=== PATIENT | female | born 1985 | race Asian ===

== ENCOUNTER 2019-01-13 05:55 | Inpatient (IN) | payer OTHER ==
[2019-01-11 16:58] LABS: ABS Basophils 0 10^3/ul (0-0.2); ABS Eosinophils 0 10^3/ul (0-0.6); ABS Lymphocytes 1.5 10^3/ul (1.0-4.8); ABS Monocytes 0.9 10^3/ul (0-0.8); ABS Neutrophils 6.3 10^3/ul (1.5-7.7); ABS Nucleated RBC 0 10^3/ul; Eosinophil % 0.5 %; Hematocrit 33 % (35-47); Hemoglobin 10.7 g/dl (12.0-16.0); Lymphocyte % 17.1 %; Mean Corpuscular HGB Conc 33 g/dl (31-36); Mean Corpuscular Hemoglobin 29 pg (27-31); Mean Corpuscular Volume 88 fL (80-97); Mean Platelet Volume 8.5 fL (7.4-10.4); Nucleated Red Blood Cells % 0; Platelet Count 201 10^3/ul (150-450); Red Blood Count 3.69 10^6/ul (4.00-5.40); Red Cell Distribution Width 15 % (10.5-15); White Blood Count 8.7 10^3/ul (3.5-10.8)
[~2019-01-13 05:55] MED LIST: Buffered Lidocaine 1% SYRIN* 1 ML/SYRINGE INTRADERM ONE
--- OUTSIDE RECORDS SUMMARY | 2019-01-13 05:59 | XMS REPORT | Continuity of Care Document ---
:1985 External Reference #:[id number] Author Name Emmett Bruno MD Address [address] [place] [address] Care Team Providers Name Role Phone Samuel Benitez M.D. 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 Payers Date Identification Numbers Payment Provider Subscriber Policy Number: [id number] Aetnicole Salcido PayID: [id number] [address] [place] [address] Advance Directives Description No Information Available Problems Description No Information Family History Date Family Member(s) Observation Comments Father A&W Mother Hypertension First Daughter A&W First Brother A&W Paternal Grandfather due to Unknown Causes () Paternal Grandmother due to Unknown Causes () Maternal Grandfather due to Unknown Causes () Maternal Grandmother due to Unknown Causes () Social History Type Date Description Comments Sex Unknown Education Highest level completed, Bachelor's Degree Marital Status Lives With Lives With Daughter Pets None 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 Tobacco Use Start: Unknown Never Smoked Cigarettes ETOH Use Denies alcohol use Recreational Drug Use Denies Drug Use Tobacco Use Start: Unknown Patient has never smoked Smoking Status Reviewed: 01/04/19 Patient has never smoked STD's No STD History Allergies, Adverse Reactions, Alerts Date Description Reaction Status Severity Comments 07/05/2018 Sulfa Active Medications Medication Date Status Form Strength Qnty SIG Indications Ordering Provider PNV-Dha Active Capsules 27-0.6-0.4-3 1 by Unknown 00 00mg mouth every day Magnesium Hx Capsules 500mg 1 by Unknown 00 - mouth 01/04/20 daily prn 19 Medications Administered in Office Medication Date Status Form Strength Qnty SIG Indications Ordering Provider PT SCRN Tbco Administered Injection Phaelon Id as Non User 019 MD Kiana Immunizations CPT Code Status Date Vaccine Lot # [id number] Given 11/16/2018 Tetnus, Diptheria Toxoids And Acellular Pertussis, [id number] PT > 7Yrs Old Vital Signs Date Vital Result Comment 01/04/2019 10:01am BP Systolic 108 mmHg BP Diastolic 78 mmHg Body Temperature 96.9 F Heart Rate 100 /min Respiratory Rate 16 /min Height 61.75 inches 5'1.75" Weight 198.00 lb BMI (Body Mass Index) 36.5 kg/m2 Last Menstrual Period 5246005 2 Parity 1 07/05/2018 9:33am BP Systolic 112 mmHg BP Diastolic 76 mmHg Height 61.75 inches 5'1.75" Weight 171.00 lb BMI (Body Mass Index) 31.5 kg/m2 Last Menstrual Period [id number] 2 Parity 1 Results Test Date Facility Test Result H/L Range Note Laboratory test 12/15/2018 [facility] Genital For GRP SEE RESULT 1 [place] [address] B Strep Only BELOW [phone] Glucose Tolerance 10/24/2018 [facility] GTT 3HR (SEE NOTE) 2 3[place] [address] Gestational [phone] Laboratory test 10/18/2018 [facility] Glucose 1 HR 136 mg/dL N 70-160 3 [place] [address] Post Prandial [phone] CBC With No Diff 10/18/2018 [facility] White Blood 10.2 N 3.5- 10.8 [place] [address] Count 10^3/uL [phone] Red Blood Count 3.50 10^6/uL Low 4.00-5.40 Hemoglobin 10.8 g/dL Low 12.0-16.0 Hematocrit 33 % Low 35-47 Mean Corpuscular Volume 95 fL N 80-97 Mean Corpuscular Hemoglobin 31 pg N 27-31 Mean Corpuscular HGB Conc 33 g/dL N 31-36 Red Cell Distribution Width 14 % N 10.5-15 Platelet Count 233 10^3/uL N 150-450 Mean Platelet Volume 8.5 fL N 7.4-10.4 Urine Drug 08/05/2018 [facility] Urine Amphetamine Negative ng/ mL 4 Comp [address] [place] [address] [phone] Urine Barbiturates Negative ng/mL 5 Urine Benzodiazepines Negative ng/mL 6 Urine Cocaine Negative ng/mL 7 Urine Phencyclidine Negative ng/mL Cutoff: 25 Urine Tetrahydrocannabinol Negative ng/mL Cutoff: 50 8 Creatinine, Urine 90.5 mg/dL Specific [place] 1.012 pH 7.4 Oxidants Negative 9 Adulterants Comment Normal Codeine, Ur Not Detected ng/mL Cutoff: 25 10 Qzymjyn-5-iyyo-glucuronide, Ur Not Detected ng/mL 11 Morphine, Ur Not Detected ng/mL Cutoff: 25 12 Jltutrex-4-scsw-glucuronide, U Not Detected ng/mL 13 6-monoacetylmorphine, Ur Not Detected ng/mL Cutoff: 25 14 Hydrocodone, Ur Not Detected ng/mL Cutoff: 25 15 Norhydrocodone, Ur Not Detected ng/mL Cutoff: 25 16 Dihydrocodeine, Ur Not Detected ng/mL Cutoff: 25 17 Hydromorphone, Ur Not Detected ng/mL Cutoff: 25 18 Hxjrishvvluqi5vshgskkbigogzln Not Detected ng/mL 19 Oxycodone, Ur Not Detected ng/mL Cutoff: 25 20 Noroxycodone, Ur Not Detected ng/mL Cutoff: 25 21 Oxymorphone, Ur Not Detected ng/mL Cutoff: 25 22 Dfiobqugucd-6-seiv-glucuronide Not Detected ng/mL 23 Noroxymorphone, Ur Not Detected ng/mL Cutoff: 25 24 Fentanyl, Ur Not Detected ng/mL Cutoff: 2 25 Norfentanyl, Ur Not Detected ng/mL Cutoff: 2 26 Meperidine, Ur Not Detected ng/mL Cutoff: 25 27 Normeperidine, Ur Not Detected ng/mL Cutoff: 25 28 Naloxone, Ur Not Detected ng/mL Cutoff: 25 29 Ikgaahyn-3-ywct-glucuronide, U Not Detected ng/mL 30 Methadone, Ur Not Detected ng/mL Cutoff: 25 31 Eddp, Ur Not Detected ng/mL Cutoff: 25 32 Propoxyphene, Ur Not Detected ng/mL Cutoff: 25 33 Norpropoxyphene, Ur Not Detected ng/mL Cutoff: 25 34 Tramadol, Ur Not Detected ng/mL Cutoff: 25 35 O-desmethyltramadol, Ur Not Detected ng/mL Cutoff: 25 36 Tapentadol, Ur Not Detected ng/mL Cutoff: 25 37 N-desmethyltapentadol, Ur Not Detected ng/mL Cutoff: 50 38 Xagjwvsjwu-umjf-csivgfbjnsv, U Not Detected ng/mL 39 Buprenorphine, Ur Not Detected ng/mL Cutoff: 5 40 Norbuprenorphine, Ur Not Detected ng/mL Cutoff: 5 41 Norbuprenorphine glucuronide Not Detected ng/mL Cutoff: 20 42 Opioid Interpretation See Comment 43 Maternal Serum Afp 08/05/2018 [facility] Interpretation SEE NOTE 44 Risk For NTD (Osb) LESS THAN 1:5000 45 Afp,Serum 24.7 NG/ML Adjusted Mom 0.81 46 Comment SEE NOTE 47 Date Of 1985 VALENTIN 01/18/2019 VALENTIN Determined By ULTRASOUND Gestational Age 16.3 WEEKS Weight 171 LBS Race =A Insulin Dependent Diabetic NO Cigarette Smoker NO Repeat Sample NO Number Of Fetuses 1 History Of NTD NO Date Of Draw 08/05/2018 Continuous 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 SEE NOTE 48 Urine Culture And 07/05/2018 [facility] Urine Culture SEE RESULT 49 [place] [address] BELOW [phone] GC/Chlamydia Dna 07/05/2018 [facility] Chlamydia [place] [address] trachomatis [phone] Rna Neisseria gonorrhoeae (GC) Rna Negative Negative Laboratory test 07/05/2018 [facility] Cytology SEE RESULT [address] [place] [address] BELOW [phone] Spinal Muscular 07/05/2018 [facility] Result Summary See Comment 51 [place] [address] SCRN D/D [phone] Result See Comment 52 Interpretation See Comment 53 Additional Information See Comment 54 Specimen See Comment 55 Released By See Comment 56 Varicella 07/05/2018 [facility] Varicella-Zoster IgG Negative 57 [place] [address] Antibody [phone] Varicella IgG Antibody Index <0.2 58 Hemoglobin 07/05/2018 [facility] Hemoglobin A2 2.8 % 2.0-3.3 [place] [address] [phone] Hemoglobin F 0.0 % 0.0-0.9 59 Hemoglobin A 97.2 % 95.8-98.0 Variant Hemoglobin 0.0 % 60 Hemoglobin Electro Interp See Comment 61 Cystic Fibrosis 07/05/2018 [facility] Cystic Fibrosis See Comment 62 [place] [address] Specimen [phone] Cystic Fibrosis Method See Comment 63 Cystic Fibrosis Result Summary NEGATIVE Cystic Fibrosis Result See Comment 64 Cystic Fibrosis Interpretation See Comment 65 Cystic Fibrosis Released By See Comment 66 Lead 07/05/2018 [facility] Lead,Venous, B < 1.0 g/dL 0.0- 4.9 67 [place] [address] [phone] Venous/Capillary Venous Submitting Laboratory Phone [phone] HIV 1/2 AB 07/05/2018 [facility] HIV 1 2 Nonreactive Nonreactive 69 [place] [address] Antibody [phone] Type And 07/05/2018 [facility] Patient [place] [address] Blood Type [phone] Antibody Screen NEGATIVE CBC With No 07/05/2018 [facility] White Blood 11.8 10^3/uL High 3.5-10.8 [place] [address] Count [phone] Red Blood Count 4.08 10^6/uL N 4.00-5.40 Hemoglobin 12.2 g/dL N 12.0-16.0 Hematocrit 37 % N 35-47 Mean Corpuscular Volume 90 fL N 80-97 Mean Corpuscular Hemoglobin 30 pg N 27-31 Mean Corpuscular HGB Conc 33 g/dL N 31-36 Red Cell Distribution Width 14 % N 10.5-15 Platelet Count 259 10^3/uL N 150-450 Mean Platelet Volume 8.8 um3 N 7.4-10.4 PNL No 07/05/2018 [facility] Rubella Screen Immune Immune 70 [place] [address] [phone] Hemoglobin A1c 5.3 % N 4.0-5.6 71 Hepatitis B Surface Ag Nonreactive Nonreactive 72 Syphillis Igg W/Reflex RPR Nonreactive Nonreactive 73 1 SEE RESULT BELOW Name: DAWIT SALCIDO : [address]: Emmett Bruno MD Acct: [id number] Unit: [id number] AGE: 33 Location: [facility] Re12/15/18 SEX: F Status: REG REF SPEC: [id number] CHARLES: 12/15/18-1405 [facility] DR: Emmett Bruno MD REQ: [id number] RECD: 12/15/18 STATUS: COMP _ SOURCE: CER/VAG/RE SPDESC: ORDERED: Grp B Strp Scrn COMMENTS: [id number] QUERIES: Is Patient Penicillin Allergic? N Is patient penicillin allergic and/or sensitivities needed? N Provider Requisition # [id number] Procedure Result Reported Site Group B Strep Culture Screen Final 12/17/18- 1323 ML Group B Strep Screen Negative * ML - Main Lab . END OF REPORT DEPARTMENT OF PATHOLOGY, [address] [place] [address] Seven Gipson M.D. Director [facility] # [id number] 2 GLU Fast 74 Col: 10/24/18 0951 GLU 1HR 166 Col: 10/24/18 1051 GLU 2HR 146 Col: 10/24/18 1151 GLU 3HR 113 Col: 10/24/18 1151 GLU Interp Col: 10/24/18 0951 GTT normal ranges for obstetrics per the [employer] (ACOG).Based on 100 gm glucose load: Fasting <95 mg/dl 1hr <180 mg/dl 2hr <155 mg/dl 3hr <140 mg/dl 3 [id number] CBC 4 REFERENCE VALUE Cutoff: 500 5 REFERENCE VALUE Cutoff: 200 6 REFERENCE VALUE Cutoff: 100 7 REFERENCE VALUE Cutoff: 150 8 ADDITIONAL INFORMATION This report is intended for use in clinical monitoring or management of patients. It is not intended for use in employment-related testing. 9 REFERENCE VALUE Cutoff: 200 mg/L 10 Tylenol 3 11 Metabolite of codeine REFERENCE VALUE Cutoff: 100 12 Elizabeth Zapata, Contin; Also a minor metabolite (10%) of codeine and can be seen in low concentrations (<2,000 ng/mL) with poppy seed ingestion. 13 Metabolite of morphine REFERENCE VALUE Cutoff: 100 14 Metabolite of heroin 15 Lortab, [place], Vicodin; Also a very minor metabolite of codeine and impurity (<1%) of oxycodone. 16 Metabolite of hydrocodone 17 Metabolite of hydrocodone 18 Dilaudid, Exalgo; Also a metabolite of hydrocodone and a minor (<5%) metabolite of morphine. 19 Metabolite of hydromorphone REFERENCE VALUE Cutoff: 100 20 Endocet, Percocet, Oxycontin 21 Metabolite of oxycodone 22 Numorphan, Opana; Also a metabolite of oxycodone. 23 Metabolite of oxymorphone REFERENCE VALUE Cutoff: 100 24 Metabolite of oxymorphone 25 Actiq, Duragesic, Fentora 26 Metabolite of fentanyl 27 Demerol 28 Metabolite of meperidine 29 Narcan 30 Metabolite of naloxone REFERENCE VALUE Cutoff: 100 31 Dolophine 32 Metabolite of methadone 33 Darvon, Darvocet 34 Metabolite of propoxyphene 35 Tradol, Ultram, Ultracet 36 Metabolite of tramadol 37 Nucynta 38 Metabolite of tapentadol 39 Metabolite of tapentadol REFERENCE VALUE Cutoff: 100 40 Buprenex, Suboxone 41 Metabolite of buprenorphine 42 Metabolite of buprenorphine 43 No opioids were detected. The absence of expected drug(s) and/or drug metabolite(s) may indicate non-compliance, altered pharmacokinetics, inappropriate timing of specimen collection relative to drug administration, diluted/adulterated urine, or limitations of testing. ADDITIONAL INFORMATION This test was developed and its performance characteristics determined by [facility] in a manner consistent with CLIA requirements. This test has not been cleared or approved by the U.S. Food and Drug Administration. Test Performed by: [facility] [address] [place] [address] 44 SCREEN NEGATIVE FOR OPEN NTD. 45 LESS THAN 1:5000 46 ADJUSTED AFP MOM INTERPRETIVE CUTOFFS: <2.50 ADJUSTED MOM <1.90 ADJUSTED MOM FOR INSULIN-DEPENDENT DIABETES <4.00 ADJUSTED MOM FOR TWINS <3.50 ADJUSTED MOM FOR TWINS INSULIN-DEPENDENT DIABETES <4.50 ADJUSTED MOM FOR TRIPLETS <4.00 ADJUSTED MOM FOR TRIPLETS INSULIN-DEPENDENT DIABETES 47 THE AFP TEST RESULT INDICATES THAT THIS PATIENT IS SCREEN NEGATIVE FOR OPEN NTD. IT SHOULD BE NOTED THAT NORMAL TEST RESULTS CAN NEVER GUARANTEE THE OF A NORMAL BABY AND THAT 2-3% OF [place] HAVE SOME TYPE OF PHYSICAL OR MENTAL DEFECT, MANY OF WHICH ARE UNDETECTABLE THROUGH ANY KNOWN DIAGNOSTIC TECHNIQUE. THE SINGLE AFP MARKER IS NOT RECOMMENDED FOR DOWN SYNDROME AND OTHER CHROMOSOMAL ABNORMALITIES SCREENING. MUCH GREATER SENSITIVITY IS ACHIEVED WITH MULTIPLE MARKERS, SUCH AFP, HCG, UNCONJUGATED ESTRIOL, AND/OR DIMERIC INHIBIN A. WHILE WOMEN 35 YEARS OR OLDER AT THE TIME OF DELIVERY HAVE THE HIGHEST RISK OF HAVING A CHILD WITH DOWN SYNDROME, CURRENT [place] [employer] OF OBSTETRICS AND GYNECOLOGY GUIDELINES (PHLEBOTOMIST SUPERVISOR/INSTRUCTOR 2007 V109 [id number] RECOMMEND THAT "MATERNAL AGE ALONE NO LONGER BE USED A CUT-OFF TO DETERMINE WHO IS OFFERED SCREENING VERSUS WHO IS OFFERED INVASIVE TESTING." GENETIC COUNCELING MAY BE CONSIDERED. THIS IS A SCREENING TEST, NOT A DIAGNOSTIC TEST. THIS RISK ASSESSMENT REPORT IS BASED IN PART ON DEMOGRAPHIC DATA PROVIDED BY THE ORDERING PHYSICIAN. PLEASE NOTIFY THE LAB PROMPTLY IF ANY DATA IS INCORRECT. FOR ASSISTANCE WITH RECALCULATIONS, PLEASE CALL YOUR LOCAL [facility] AT . FOR ASSISTANCE WITH INTERPRETATION OF THESE RESULTS, PLEASE CALL [phone]. 48 --- Reviewed by: Armani Ac MD 49 SEE RESULT BELOW Name: DAWIT SALCIDO : [address]: Julieta Rodríguez CNM Acct: [id number] Unit: [id number] AGE: 32 Location: [facility] Re07/05/18 SEX: F Status: REG REF SPEC: [id number] CHARLES: 07/05/18-[address]: Julieta Rodríguez CNM REQ: [id number] RECD: 07/05/18 STATUS: COMP _ SOURCE: URINE [facility]: ORDERED: Urine Culture COMMENTS: [id number] Urine Source: Random Procedure Result Reported Site Urine Culture Final 07/06/18- 1215 ML No Growth (<1,000 CFU/mL) * ML - Main Lab . END OF REPORT DEPARTMENT OF PATHOLOGY, [address] [place] [address] Seven Gipson M.D. Director [facility] # [id number] 50 SEE RESULT BELOW Name: DAWIT SALCIDO : [address]: Julieta JEAN Acct: [id number] Unit: [id number] AGE: 32 Location: [facility] Re07/05/18 SEX: F Status: REG REF SPEC: [id number] CHARLES: 07/05/18-[address]: Julieta Rodríguez [facility] REQ: [id number] RECD: 07/05/18 STATUS: SOUT _ ORDERED: TP IMAGE ANALYS, HPV/Thin Prep COMMENTS: [id number] Negative for Intraepithelial lesion or Malignancy Date Time Test Result Flag (u) Normal Range 07/05/18 1054 @ HPV RNA Negative Negative @ @ The high-risk HPV types detected by the assay include: 16, @ 18, 31, 33, 35, 39, 45, 51, 52, 56, 58, 59, 66, and 68. A. Ectocervical/Endocervical Specimen Adequacy: Satisfactory of evaluation Transformation zone component identified Patient Information: HPV: High risk HPV RNA testing regardless of pap results. Actual Specimen Date: 07/05/18 Last Menstrual Date: 04/07/18 Spec Date if unknown: unknown ?: Y Post Menopausal?: N Hysterectomy?: N Previous Abnormal Pap Smears?:N Signed by and Reported on: Lenin MendozaRYAN sherwood (ASCP) 1303 This Pap test was evaluated with the assistance of the MediWoundPrep Test Imaging System. Due to cytologic findings at the wire turning machine operator microscope, comprehensive manual rescreening by a Business Owner/Engineer may be required. The Pap Smear is a screening test designed to aid in the detection of premalignant and malignant conditions of the uterine cervix. It is not a diagnostic procedure and should not be used as the sole means of detecting cervical cancer. Both false- positive and false- negative reports do occur. Depending on your risk status, a Pap smear should be obtained and evaluated every 1-3 years. END OF REPORT DEPARTMENT OF PATHOLOGY, [address] [place] [address] Seven Gipson M.D. Director [facility] # [id number] 51 RESULT: NEGATIVE FOR SMN1 DELETION (SEE INTERPRETATION) 52 Two copies of SMN1 exon 7 were detected. Three copies of SMN2 were detected. 53 This result indicates a reduced carrier risk for Spinal Muscular Atrophy (SMA). Although SMN1 gene deletions account for 95% of SMA-causing mutations, carrier status cannot be completely excluded because this test cannot differentiate one copy of SMN1 exon 7 on each chromosome (1/1) from two copies of SMN1 on one chromosome and none on the other chromosome (2/0). Individuals that carry zero copies of the SMN1 gene on one of their chromosomes may be at risk to have an affected child, if their partner is also an SMA carrier. Other alterations within the SMN1 gene, such as point mutations, are also not detected by this test. An individual's residual risk for SMA carrier status varies by ancestry and SMN1 copies. The table below lists the chance of being a 2/0 or 3/0 carrier, based on ancestry and the number of copies of SMN1 detected (1). Ancestry Prior Risk 2 Copies (2/0) 3 Copies (3/0) ----- 35 632 11/3499 Ashkenazi Anglican 41 350 11/3999 53 1628 11/4999 66 121 11/2999 117 11/1060 14772 These calculations are based on the population carrier frequencies noted in the chart and assume no family history of SMA. We are unable to provide a revised risk assessment for ancestries other than those listed above as there is insufficient information available about the SMA carrier frequency in other populations. A genetic consultation may be of benefit. ADDITIONAL INFORMATION Laboratory developed test (LDT) for SMN1 exon 7 and SMN2 exon 7 copy number by droplet digital PCR. Mutation nomenclature is based on the following GenBank Accession number(s) (build GRCh37 (hg19)): [id number]. See [email or web address] (Test ID SMNCS) for additional information about this test. CAUTIONS: CLINICAL CORRELATIONS Test results should be interpreted in context of clinical findings, family history, and other laboratory data. Misinterpretation of results may occur if the information provided is inaccurate or incomplete. If testing was performed because of a family history of Spinal Muscular Atrophy, it is often useful to first test an affected family member. TECHNICAL LIMITATIONS Point mutations are undetectable by this assay. Nor can the assay discriminate between two copies of SMN1 on the same chromosome versus two copies on separate chromosomes. Bone marrow transplants from allogenic donors will interfere with testing. Call [facility] for instructions for testing patients who have received a bone marrow transplant. TEST CLASSIFICATION This test was developed and its performance characteristics determined by [facility] in a manner consistent with CLIA requirements. This test has not been cleared or approved by the U.S. Food and Drug Administration. 54 REFERENCES 1. J Med Zohra. 2009; 46: 641-644 (PMID: 11844228) 55 RESULT: WB Whole Blood, WB Whole Blood 56 RESULT: Miguel Angel Lester M.D., Ph.D. Test Performed by: [facility] [address] [place] [address] 57 REFERENCE VALUE Vaccinated: Positive (>=1.1 AI) Unvaccinated: Negative (<=0.8 AI) 58 Test Performed by: [facility] [address] [place] [address] 59 ADDITIONAL INFORMATION This test has been modified from the ball thread machine tender's instructions. Its performance characteristics were determined by [facility] in a manner consistent with CLIA requirements. This test has not been cleared or approved by the U.S. Food and Drug Administration. 60 REFERENCE VALUE No abnormal variants ADDITIONAL INFORMATION This test has been modified from the ball thread machine tender's instructions. Its performance characteristics were determined by [facility] in a manner consistent with CLIA requirements. This test has not been cleared or approved by the U.S. Food and Drug Administration. 61 No electrophoretic evidence of abnormal hemoglobin or beta thalassemia. See comment. Comment: These results do not exclude alpha thalassemia. The vast majority of hemoglobin variants and beta thalassemias are excluded, although some rare clinically significant hemoglobin disorders are electrophoretically silent. If otherwise unexplained lifelong/familial symptoms such as hemolysis (i.e. Willian body hemolytic anemia), microcytosis, erythrocytosis, cyanosis, or hypoxia are present and additional testing is desired, please call the [facility] ( ). If alpha thalassemia is a consideration, alpha globin gene deletion/duplication analysis is available (ATHAL/Alpha-Globin Gene Analysis). Additional sample required. Test Performed by: [address] [address] 62 RESULT: WB Whole Blood, WB Whole Blood 63 The multiplex PCR based assay utilizing the XOJET Array platform was used to detect 106 mutations, including the 23 mutations specified in the [employer] (ACMG) standards for population based carrier screening. The mutations are as follows: [id number], eocfkA833, G542X, G85E, R117H, I6955P (TGG>TGA), 621+1G>T, 711+1G>T, E5763G (C>A), F2029A (C>G), R334W, R347P, A455E, 1717-1G>A, R553X, R560T, G551D, 1898+1G>A, 2184delA, 2789+5G>A, 3120+1G>A, O3416R, 3659delC, 3849+10kbC>T, the deletion of exons 2-3, 296+2T>A, E60X, R75X, 394_395delTT, 405+1G>A, 406-1G>A, E92X, 444delA, 457TAT>G, R117C, Y122X, 574delA, 663delT, G178R, 711+5G>A, 712-1G>T, H199Y, P205S, L206W, 722epw11, 935delA, 936delTA, kdafkN211, 1078delT, G330X, T338I, R347H, R352Q, Q359K, T360K, 1288insTA, S466X (C>A), S466X (C>G), G480C, Q493X, 1677delTA, C524X, S549N, S549R (T>G), Q552X, A559T, 1811+1.6kbA>G, 1812-1G>A, 1898+1G>T, 1898+1G>C, 1898+5G>T, P574H, 4600xcr72, 2043delG, 4687qnu0>A, 7387ihe06ono1, 2108delA, 2143delT, 2183_2184delAAinsG, 2184insA, R709X, K710X, 2307insA, R764X, Q890X, 2869insG, 3171delC, 3492hwu9, R2481H, Q0213X (TGG>TAG), E1885B (C>G), F1689T (C>A), W4683O, H8265Z, T1557D, H6894M, 2416yxi9, O4259Z, S3884K (TGG>TAG), 3791delC, M0529J, 3876delA, U2192K, F3547S, 3905insT, and 4016dupT mutations are detected. Poly T determination and confirmatory testing of homozygous results are performed as reflex tests when appropriate. 64 RESULT: None of the listed mutations were detected. 65 Having excluded the listed mutations, this result decreases the likelihood but does not exclude the possibility that this individual is a carrier of or affected with cystic fibrosis (CF). The degree to which this result reduces the patient's risk depends on the ethnic background and family history of the patient. Because this information was not provided, we are unable to provide a revised risk assessment at this time. The risk that this individual is a carrier of another CF mutation is listed below. Ethnicity Risk (Detection rate, Carrier Freq) Northern (91%, 11/25) Mixed 134 (82%, 11/25) Southern 115 (79%, 11/25) Eastern 127 (77%, 11/30) Ashkenazi Anglican (97%, 11/25) Italian British (91%, 11/25) 1/338 (81%, 1/65) Scottish 1/251 (82%, 1/46) Scottish* 1/194 (54%, ) *does not apply to individuals of Maori ancestry These calculations are based on the mutation detection rates and population carrier frequencies noted in the chart and assume no family history of CF. Because there is little information available about the carrier frequency and mutation detection rates for individuals of other ethnicities, we are unable to provide a revised risk assessment for ethnicities other than those listed. If the patient has a family history of CF, contact our laboratory for a revised risk assessment. If there is a suspected diagnosis of CF, correlation between other laboratory tests and clinical history is recommended. Additional genetic testing strategies, such as full gene analysis of the CFTR gene (CFTRZ / CFTR Gene, Full Gene Analysis), should be considered for identifying mutations that are not detected by this assay. Contact the [facility] at for further discussion regarding this option. A genetic consultation may be of benefit. ADDITIONAL INFORMATION An online research opportunity called TRIBAX ([email or web address] bards), a project of [employer], is available for the recipient of this genetic test. This patient registry collects de-identified genetic and health information to advance the knowledge of genetic variants. [facility] is a collaborator of [employer]. This may not be applicable for all tests. Test results should be interpreted in the context of clinical findings, family history, and other laboratory data. Misinterpretation of results may occur if the information provided is inaccurate or incomplete. Rare polymorphisms exist that could lead to false-negative or false-positive results. If results obtained do not match the clinical findings, additional testing should be considered. Bone Marrow transplants from allogenic donors will interfere with testing. Call [facility] for instructions for testing patients who have received a bone marrow transplant. Multiple in-silico evaluation tools may have been used to assist in the interpretation of these results. Of note, the sensitivity and specificity of these tools for the determination of pathogenicity is currently unvalidated. This test was developed and its performance characteristics determined by [facility] in a manner consistent with CLIA requirements. This test has not been cleared or approved by the U.S. Food and Drug Administration. 66 RESULT: Matthew Ramesh, Ph.D. [id number] Test Performed by: [facility] [address] [place] [address] 67 ADDITIONAL INFORMATION Testing performed by Inductively Coupled Plasma-Mass Spectrometry (ICP-MS). This test was developed and its performance characteristics determined by [facility] in a manner consistent with CLIA requirements. This test has not been cleared or approved by the U.S. Food and Drug Administration. 68 Test Performed by: [facility] [address] [place] [address] 69 It is recognized that currently available assays for the detection of antibodies to HIV-1 and/or HIV-2 may not detect all infected individuals. HIV antibodies may be undetectable in some stages of the infection and in some clinical conditions. The performance of this assay has not been established for populations of infants or children. Assayed by Chemiluminescence Microparticle Immunoassay on the Siemens Advia Centaur CP. Values obtained with different methods or kits cannot be used interchangeably.The diagnostic specificity of the ADVIA Centaur 1/O/2 Enhanced assay in the low risk population was 99.90% (6052/6058) with a 95% confidence interval of 99.78 to 99.96%. 70 [id number] Therapeutic target for the treatment of diabetes mellitus patients is <7% HBA1C, and in selective patients <6.0%. Please refer to [employer] diabetic care guidelines for further information. 72 [id number] Warning: A positive result is not useful for establishing a diagnosis of syphilis. In most situations, such a result may reflect a prior treated infection; a negative result can exclude a diagnosis of syphilis except for incubating or early primary disease. Procedures Date Code Description Status 12/15/2018 34753 Echography Uterus Limited Completed 09/05/2018 07691 Ultrasound;Preg Uterus Single Or First Gestation Completed Transabdominal 07/05/2018 22738 OB Ultrasound First Trimester Completed Encounters Type Date Location Provider Dx Diagnosis Office Visit 01/04/2019 [facility] Office Emmett Bruno MD Z01.818 Encounter for other 10:00a preprocedural examination O34.211 Matern care for low transverse scar from prev del Plan of Treatment Future Appointment(s):01/20/2019 11:00 am - Christina Pearson CNM at [facility]01/13/2019 7:45 am - Manolo Fang CNM at [facility] [place] 02/10/2019 2:00 pm - Emmett Bruno MD at [facility]01/13/2019 7:45 am - [place] [facility]
[2019-01-13] MEDS ORDERED: Famotidine IV* 10 MG/ML 2 ML (20 mg) IV ONE (06:00)
[2019-01-13] MEDS ORDERED: Lactated Ringers 1000 ML Bag* 1,000 ML IV SCH ×2 (06:00→10:00)
[2019-01-13] MEDS ORDERED: ceFOXitin 2 GM IVPREMIX* 2 GM/50 ML BAG IVPB ONE (06:00)
[2019-01-13] MEDS ORDERED: fentaNYL* 50 MCG/ML 2 ML VIAL (100 MCG VIAL) ONE (07:25)
[2019-01-13] MEDS ORDERED: KETAMINE HCL* 50 MG/ML 10 ML VIAL ONE (07:25)
[2019-01-13] MEDS ORDERED: Morphine PF AMP (0.5MG/ML)* 5 MG/10 ML AMP ONE (07:26)
[2019-01-13] MEDS ORDERED: Midazolam* 1 MG/ML 5 ML VIAL (5 MG) ONE (07:26)
[2019-01-13] MEDS ORDERED: Famotidine IV* 10 MG/ML 2 ML (20 mg) ONE (07:27)
[2019-01-13] MEDS ORDERED: oxyCODONE/Acetamin 5/325 MG* TAB PO PRN (08:29)
[2019-01-13] MEDS ORDERED: Nalbuphine* 10 MG/ML 1 ML VIAL IV PRN (08:29)
[2019-01-13] MEDS ORDERED: Naloxone* 0.4 MG/ML 1 ML VIAL IV PRN ×2 (08:29→08:36)
[2019-01-13] MEDS ORDERED: Ondansetron INJ* 2 MG/ML VIAL IV PRN (08:29)
[2019-01-13] MEDS ORDERED: Scopolamine 1.5 mg* PATCH TRANSDERM PRN (08:29)
[2019-01-13] MEDS ORDERED: PROCHLORPERAZINE INJ 5 MG/ML 2 ML VIAL IV PRN (08:29)
[2019-01-13] MEDS ORDERED: DiMENhydriNATE IV* 50 MG/ML VIAL IV PUSH PRN (08:29)
[2019-01-13] MEDS ORDERED: Naloxone* 2 MG in NS 0.9% 250 ML* 250 ML IV PRN (08:29)
[2019-01-13] MEDS ORDERED: fentaNYL* 50 MCG/ML 2 ML VIAL (100 MCG VIAL) IV PRN (08:36)
[2019-01-13] MEDS ORDERED: Bupivacaine-MPF SPINAL* 7.5 MG/ML - 2ML AMP ONE (09:19)
[2019-01-13] MEDS ORDERED: Phenylephrine INJ* 10 MG/ML 1 ML VIAL (10 MG) ONE (09:19)
[2019-01-13] MEDS ORDERED: Scopolamine 1.5 mg* PATCH ONE (09:19)
[2019-01-13] MEDS ORDERED: Bupivacaine 0.25% SDV PF* 10 ML VIAL INJ ONE (09:19)
[2019-01-13] MEDS ORDERED: Ketorolac INJ* 30 MG/ML 1 ML VIAL ONE (09:20)
[2019-01-13] MEDS ORDERED: Dexamethasone IV* 4 MG/ML 1 ML (4 MG) ONE (09:20)
[2019-01-13] MEDS ORDERED: OXYTOCIN* 10 UNITS/ML 1 ML VIAL ONE (09:20)
[2019-01-13] MEDS ORDERED: EPHEDrine (Pressors)* 50 MG/ML VIAL ONE (09:20)
[2019-01-13] MEDS ORDERED: Varicella Virus Vaccine Live* 0.5 ML VIAL SUBCUT ONE (09:26)
[2019-01-13] MEDS ORDERED: Witch Hazel PAD* JAR TOPICAL PRN (09:26)
[2019-01-13] MEDS ORDERED: Acetaminophen TAB* 325 MG PO PRN (09:26)
--- NOTE | 2019-01-13 11:11 | OP ---
DATE OF OPERATION: 01/13/19 - ROOM #116 DATE OF : 81 SURGEON: Emmett Bruno MD AUTOGRAPHER: Manolo Fang CNM ANESTHESIOLOGIST: Dr. Izquierdo. ANESTHESIA: Spinal. PRE-OP DIAGNOSIS: A 39 plus 2 weeks gestation with history of previous section. POST-OP DIAGNOSIS: A 39 plus 2 weeks gestation with history of previous section. OPERATIVE PROCEDURE: Repeat low-transverse section. ESTIMATED BLOOD LOSS: 700 cc. URINE OUTPUT: 300 cc. IV FLUIDS: 2500 cc lactated Ringer's. MATERIALS TO LAB: Cord blood. INDICATIONS: This patient is a 33-year-old 2, para 1, at 39 plus 2 weeks gestation who presented today for her scheduled repeat section. The patient's was uncomplicated. She was extensively counseled for the procedure and consent was signed. FINDINGS: Normal-appearing uterus, fallopian tubes, and ovaries. Delivery is productive of a female weighing 8 pounds 10 ounces with Apgars of 9 and 9. TIME OF DELIVERY: 0835. COMPLICATIONS: None. DESCRIPTION OF PROCEDURE: The risks, benefits, and alternatives were described to the patient, and informed consent was obtained. The patient was taken to the operating room with IV running, where spinal anesthesia was induced and found to be adequate. The patient was prepped and draped in normal sterile fashion in the dorsal supine position with a leftward tilt. A Pfannenstiel skin incision was made with a scalpel through the patient's previous incision. This was carried down to the underlying fascia using the scalpel. The fascia was scored in the midline, and the incision was extended using Burch scissors. The fascia was dissected off the underlying rectus muscles using blunt and sharp dissection. The rectus muscles were in the midline using dissection with a Thelma clamp. The peritoneum was then entered bluntly. A bladder blade was placed. A bladder flap was created sharply using Metzenbaum scissors. A low transverse uterine incision was then made with the scalpel. This was carried down to the amniotic membranes. The membranes were then ruptured, productive of clear fluid. The uterine incision was extended using blunt traction. The head was elevated to the level of the incision, and, with fundal pressure, the head delivered without difficulty. The shoulders then were also both delivered and the body followed. The infant had excellent tone and cried immediately on delivery. The cord was doubly clamped and cut. The was then handed to the awaiting radiography technician. Cord blood was collected. The placenta was delivered with manual extraction. The uterus was then exteriorized and cleared of all clots and debris. The uterine incision was then reapproximated using 0 Polysorb in a running-locked fashion. A second layer of imbricating 0 Polysorb sutures was then also placed for good hemostasis. The posterior cul-de-sac was irrigated with saline. The uterus was then returned to the abdomen. The incision was reinspected and still noted to be hemostatic. The peritoneum was closed with 2-0 chromic in a running fashion. The fascia was closed with 0 Polysorb in a running fashion. The subcutaneous tissues were copiously irrigated and made hemostatic using the Bovie. The subcutaneous tissues were then reapproximated using 2-0 chromic in interrupted sutures. The skin was then closed with . A sterile bandage was then placed over the incision. The patient tolerated the procedure well. Sponge, lap, and needle counts were correct x2. [id number]/[facility] #: [id number] [facility] CENTERBindu
[2019-01-13] MEDS: Ketorolac INJ* 30 MG/ML 1 ML VIAL IV PRN ×2 (11:51→23:26)
--- NOTE | 2019-01-13 16:22 | PTEDU ---
Patient Name: DAWIT SALCIDO LOLY DAWIT selected video: Never Ever Shake a Baby to view on 01/13/2019 at 4:22:21 PM from [id number]
--- NOTE | 2019-01-13 16:31 | PTEDU ---
Patient Name: DAWIT SALCIDO DAWIT SALCIDO selected video: Follow Me Mum: [employer] Successful to view on 01/13/2019 at 4 :31:20 PM from [id number]
[2019-01-13] MEDS: Simethicone TAB* 80 MG TAB.CHEW PO SCH ×3 (18:21→21:37)
[2019-01-13] MEDS: Docusate CAP* 100 MG PO SCH ×2 (18:21→21:37)
[2019-01-14] MEDS ORDERED: oxyCODONE/Acetamin 5/325 MG* TAB PO PRN ×2
[2019-01-14 06:14] LABS: ABS Basophils 0.1 10^3/ul (0-0.2); ABS Eosinophils 0 10^3/ul (0-0.6); ABS Monocytes 1.1 10^3/ul (0-0.8); ABS Neutrophils 10.8 10^3/ul (1.5-7.7); ABS Nucleated RBC 0 10^3/ul; Eosinophil % 0.1 %; Hematocrit 26 % (33-41); Hemoglobin 8.4 g/dL (12.0-16.0); Lymphocyte % 14.5 %; Mean Corpuscular HGB Conc 33 g/dL (31-36); Mean Corpuscular Hemoglobin 29 pg (27-31); Mean Corpuscular Volume 88 fL (80-97); Nucleated Red Blood Cells % 0; Platelet Count 169 10^3/uL (150-450); Red Blood Count 2.93 10^6 /uL (3.70-4.87); Red Cell Distribution Width 15 % (10.5-15)
[2019-01-14] MEDS: Ferrous Gluconate TAB* 324 MG TAB PO SCH ×2 (09:24→21:54)
[2019-01-14] MEDS: Simethicone TAB* 80 MG TAB.CHEW PO SCH ×3 (09:24→21:55)
[2019-01-14] MEDS: Ibuprofen TAB* 600 MG PO PRN ×3 (09:24→21:55)
[2019-01-14] MEDS: Docusate CAP* 100 MG PO SCH ×3 (09:24→21:55)
[2019-01-15] MEDS: Simethicone TAB* 80 MG TAB.CHEW PO SCH ×5 (08:09→20:36)
[2019-01-15] MEDS: Docusate CAP* 100 MG PO SCH ×3 (08:09→20:36)
[2019-01-15] MEDS: Ferrous Gluconate TAB* 324 MG TAB PO SCH ×2 (08:09→20:36)
[2019-01-15] MEDS: Ibuprofen TAB* 600 MG PO PRN ×3 (08:09→20:36)
[2019-01-16] MEDS: Ibuprofen TAB* 600 MG PO PRN ×2 (03:44→12:13)
[2019-01-16 08:05] VITALS: BP 115/73
[2019-01-16] MEDS: Simethicone TAB* 80 MG TAB.CHEW PO SCH (08:14)
[2019-01-16] MEDS: Docusate CAP* 100 MG PO SCH (08:15)
[2019-01-16] MEDS: Ferrous Gluconate TAB* 324 MG TAB PO SCH (08:15)
[2019-01-16] MEDS ORDERED: Scopolamine PATCH Remove* 1 NOTE MISC PATCH OFF PRN (08:31)
== END 2019-01-16 12:23 | disposition home or self-care (01) | DRG 788 ==
LOC: MCHOB 05:55
PROVIDERS: ADMIT Obstetrics & Gynecology; ATTEND Obstetrics & Gynecology
PROC: 10D00Z1 Extraction of Products of Conception, Low, Open Approach (ICD-10-PCS; principal; 2019-01-13 07:45)
DX: O34.211 Maternal care for low transverse scar from previous cesarean delivery (principal); Z3A.39 39 weeks gestation of pregnancy; Z37.0 Single live birth
CPT/HCPCS: 36415; 85025; 86850; 86900; 86901; 90686; A9270-GY; J0694; J1100; J1885; J2250; J2590; J3010; J3490